=== PATIENT | female | born 1975 | race Caucasian/White ===

== ENCOUNTER 2017-11-20 22:29 | Inpatient (IN) | payer BC ==
[~2017-11-20] VITALS: Ht 170.2 cm; Wt 91.2 kg
[2017-11-20 23:00] VITALS: BP 135/98
[2017-11-20] MEDS ORDERED: MOTRIN800 MG PO (23:09)
[2017-11-20 23:15] VITALS: BP 137/61
[2017-11-20 23:20] VITALS: BP 136/72
[2017-11-20 23:36] VITALS: BP 116/57
[2017-11-20 23:50] VITALS: BP 125/71
[2017-11-21 00:17] VITALS: BP 124/67
[2017-11-21 00:58] VITALS: BP 120/60
[2017-11-21 02:04] VITALS: BP 112/56
[2017-11-21] MEDS ORDERED: PRENATAL TABLE1 EAC3 PO (05:47)
[2017-11-21] MEDS ORDERED: MAGNESIUM100 MG PO (05:48)
[2017-11-21 07:14] VITALS: BP 122/62
[2017-11-21 14:59] VITALS: BP 123/59
[2017-11-21 23:08] VITALS: BP 121/58
== END 2017-11-22 21:00 | disposition home or self-care (01) | DRG 775 ==
LOC: LDRP-OP 22:29 → 2WEST 22:30
PROC: 10E0XZZ Delivery of Products of Conception, External Approach (ICD-10-PCS; principal; 2017-11-20)
PROC: 0HQ9XZZ Repair Perineum Skin, External Approach (ICD-10-PCS; 2017-11-20)
DX: O34.211 Maternal care for low transverse scar from previous cesarean delivery (principal); F33.9 Major depressive disorder, recurrent, unspecified; Z3A.39 39 weeks gestation of pregnancy; Z37.0 Single live birth; O24.420 Gestational diabetes mellitus in childbirth, diet controlled; O70.0 First degree perineal laceration during delivery; O62.3 Precipitate labor; O99.344 Other mental disorders complicating childbirth; O69.81X1 Labor and delivery complicated by cord around neck, without compression, fetus 1; Z80.0 Family history of malignant neoplasm of digestive organs; Z80.52 Family history of malignant neoplasm of bladder; Z82.3 Family history of stroke; Z83.3 Family history of diabetes mellitus; Z80.3 Family history of malignant neoplasm of breast; Z82.49 Family history of ischemic heart disease and other diseases of the circulatory system
CPT/HCPCS: J2590